=== PATIENT | male | born 2000 | race African-American/Black ===

== ENCOUNTER 2024-02-11 21:40 | Emergency (ER) | payer MEDICAID, SELFPAY ==
[2024-02-11 22:52] LABS: SARS-CoV-2 E Target Positive; SARS-CoV-2 N2 Target Positive; SARS-CoV-2 NAA Rapid Test DETECTED (NotDetected); SARS-CoV-2 RdRP gene Positive
== END 2024-02-11 22:35 | disposition home or self-care (01) ==
LOC: ERS 21:40
DX: U07.1 COVID-19 (principal)
CPT/HCPCS: 99283; U0002

== ENCOUNTER 2024-04-15 09:52 | Emergency (ER) | payer OTHER ==
[2024-04-15] MEDS ORDERED: Dexamethasone 10 MG/ML VIAL ONE (11:02)
== END 2024-04-15 11:14 | disposition home or self-care (01) ==
LOC: ERS 09:52
DX: J02.9 Acute pharyngitis, unspecified (principal)
CPT/HCPCS: 87081; 87430; 99283; J1100

== ENCOUNTER 2024-06-17 18:41 | Emergency (ER) | payer OTHER | END 2024-06-17 19:50 | disposition home or self-care (01) | LOC: ERS 18:41 | DX: R11.0 Nausea (principal) | CPT/HCPCS: 99282 ==